=== PATIENT | female | born 1945 | race Caucasian/White ===

== ENCOUNTER 2022-08-26 13:45 | Day surgery (SDC) | payer MEDICARE ==
[~2022-08-26] VITALS: Ht 167.6 cm; Wt 68.7 kg
[~2022-08-26 13:45] MED LIST: ATOR10; Aspir 8181 MG; CALGLU500; ERGO400; FLUO10; HYDMOR4 PO; MULVITSO; VALD20 PO
[2022-08-26] MEDS ORDERED: ZOCOR20 MG (14:13)
[2022-08-26] MEDS ORDERED: Lisinopril2.5 MG (14:13)
== END 2022-08-26 16:05 | disposition home or self-care (01) ==
LOC: ORSCSDS 13:45
PROVIDERS: Internal Medicine Gastroenterology
PROC: 0DJD8ZZ Inspection of Lower Intestinal Tract, Via Natural or Artificial Opening Endoscopic (ICD-10-PCS; principal; 2022-08-26 15:00)
DX: K62.89 Other specified diseases of anus and rectum (principal); Z86.010 Personal history of colon polyps; K57.30 Diverticulosis of large intestine without perforation or abscess without bleeding; Z79.82 Long term (current) use of aspirin; Z79.899 Other long term (current) drug therapy
CPT/HCPCS: J0330; J0461; J2405; J2704; J7120; Q9968